=== PATIENT | female | born 1950 | race Caucasian/White ===

== ENCOUNTER → 2016-05-14 | Outpatient (CLI) | payer MEDICARE, OTHER, BC | LOC: RAD 16:53 | DX: J40 Bronchitis, not specified as acute or chronic (principal); Z88.8 Allergy status to other drugs, medicaments and biological substances | CPT/HCPCS: 71020 ==

== ENCOUNTER → 2016-07-12 | Outpatient (CLI) | payer MEDICARE, OTHER, BC | LOC: HEART 5 10:45 | DX: J44.9 Chronic obstructive pulmonary disease, unspecified (principal); J20.9 Acute bronchitis, unspecified | CPT/HCPCS: 94010 ==